=== PATIENT | female | born 1995 | race Two or more races ===

== ENCOUNTER 2017-11-25 10:59 | Inpatient (IN) | payer MEDICAID, OTHER ==
[~2017-11-25] VITALS: Ht 152.4 cm; Wt 68.9 kg
[2017-11-25 11:57] LABS: Urine Bacteria NONE SEEN /hpf (None Seen); Urine Blood 3+ /uL (Negative); Urine Specific Gravity 1.006 (1.001-1.035); Urine WBC 3 /hpf (0 - 5)
[2017-11-25 12:15] LABS: Basophils # (auto) 0 uL; Basophils % (auto) 0.4 % (0.0-2.0); Eosinophils # (auto) 0 uL; Eosinophils % (auto) 0.4 % (0.0-7.0); Hematocrit 38.6 % (36.0-46.0); Hemoglobin 13.2 g/dL (12.2-16.2); Lymphocytes # (auto) 1.8 uL; Lymphocytes % (auto) 17.9 % (10.0-50.0); Mean Corpuscular Hemoglobin 31.1 pg (28.0-32.0); Mean Corpuscular Hgb Conc. 34.2 g/dL (32.0-36.0); Mean Corpuscular Volume 90.9 fL (80.0-100.0); Monocytes # (auto) 0.7 uL; Monocytes % (auto) 7.2 % (0.0-12.0); Neutrophils # (auto) 7.5 uL; Neutrophils % (auto) 74.1 % (37.0-80.0); Nucleated Red Blood Cells % 0.1 %; Platelet Count (auto) 299 10^3/uL (140-450); Red Blood Cells 4.24 10^6/uL (4.0-5.20); Red Cell Distribution Width 13.3 % (11.8-14.3); White Blood Cell 10.1 10^3/uL (4.4-10.8)
[2017-11-25 12:26] LABS: Albumin 3.8 g/dL (3.4-5.0); Calcium 8.6 mg/dL (8.5-10.1); Potassium 3.9 mmol/L (3.5-5.1)
[2017-11-25 12:33] LABS: Bilirubin, Total 1.4 mg/dL (0.2-1.0); Total Protein 7.5 g/dL (6.4-8.2)
[2017-11-25 15:02] LABS: Partial Thromboplastin Time 27.3 sec (23.78-33.04); Prothrombin Time 10.7 sec (9.27-12.13)
[2017-11-25] MEDS ORDERED: LACTATED RINGER'S 1,000 ML IV SCH (16:00)
[2017-11-25] MEDS ORDERED: ceFAZolin 1GM/50ML 50 ML IV ONE (16:42)
[2017-11-25] MEDS ORDERED: LIDOCAINE 1% (LOCAL ANESTH.) PF 5ml SDV ONE (16:46)
[2017-11-25] MEDS ORDERED: SUCCINYLCHOLINE CHLORIDE 20 MG/ML 10ML VIAL IV ONE (16:46)
[2017-11-25] MEDS ORDERED: MIDAZOLAM HCL 1MG/1ML-2 ML VIAL ONE (16:49)
[2017-11-25] MEDS ORDERED: ROCURONIUM 10MG/ML 10ML VIAL IV ONE (16:49)
[2017-11-25] MEDS ORDERED: PROPOFOL 10 MG/ML 20 ML IV ONE (16:50)
[2017-11-25] MEDS ORDERED: METOCLOPRAMIDE HCL 5MG/ml INJ 2ml VIAL ONE (16:56)
[2017-11-25] MEDS ORDERED: fentaNYL CITRATE 100 MCG/2 ML VL ONE (17:04)
[2017-11-25] MEDS ORDERED: ONDANSETRON HCL 4 MG/2 ML VIAL IV ONE (17:30)
[2017-11-25] MEDS ORDERED: NALOXONE HCL 0.4 MG/ML VIAL IV PRN (17:30)
[2017-11-25] MEDS ORDERED: HYDROmorphone HCL 2 MG/ML VL IV PRN ×2 (17:30→19:15)
[2017-11-25] MEDS ORDERED: GLYCOPYRROLATE 0.2 MG/ML 1ML VIAL ONE (18:32)
[2017-11-25] MEDS ORDERED: NEOSTIGMINE 1 MG/ML INJ (10mg/10ML VIAL) ONE (18:32)
[2017-11-25] MEDS: HYDROmorphone HCL 2 MG/ML VL IV PRN ×2 (18:58→19:08)
[2017-11-25] MEDS ORDERED: ONDANSETRON HCL 4 MG/2 ML VIAL IV PRN (19:15)
[2017-11-25] MEDS: LACTATED RINGER'S 1,000 ML IV SCH (21:42)
[2017-11-25 22:00] VITALS: BP 104/50
[2017-11-25] MEDS: KETOROLAC TROMETH 30 MG/ML 1ML VIAL IV SCH (23:55)
[2017-11-26] MEDS: LACTATED RINGER'S 1,000 ML IV SCH (04:55)
[2017-11-26 05:00] VITALS: BP 92/37
[2017-11-26] MEDS: KETOROLAC TROMETH 30 MG/ML 1ML VIAL IV SCH ×2 (05:38→11:59)
[2017-11-26 09:00] VITALS: BP 103/45
[2017-11-26 13:00] VITALS: BP 109/52
== END 2017-11-26 16:29 | disposition home or self-care (01) | DRG 545 ==
LOC: ER 11:02 → CENTRAL 11:03
PROVIDERS: ADMIT Specialist; ATTEND Specialist
PROC: 10T24ZZ Resection of Products of Conception, Ectopic, Percutaneous Endoscopic Approach (ICD-10-PCS; 2017-11-25)
PROC: 10D27ZZ Extraction of Products of Conception, Ectopic, Via Natural or Artificial Opening (ICD-10-PCS; 2017-11-25)
PROC: 0UB54ZZ Excision of Right Fallopian Tube, Percutaneous Endoscopic Approach (ICD-10-PCS; principal; 2017-11-25 16:46)
DX: O00.101 Right tubal pregnancy without intrauterine pregnancy (principal); K66.1 Hemoperitoneum; Z3A.13 13 weeks gestation of pregnancy
CPT/HCPCS: 36415; 76801; 80053; 81001; 84702; 85025; 85610; 85730; 86850; 86900; 86901; 96374; J0330; J0690; J1885; J2250; J2704